=== PATIENT | female | born 1995 | race African-American/Black ===

== ENCOUNTER 2020-02-26 20:36 | Emergency (ER) | payer MEDICARE ==
[~2020-02-26] VITALS: Ht 162.6 cm; Wt 81.6 kg
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
== END 2020-02-26 21:40 | disposition home or self-care (01) ==
LOC: FSED 20:36
DX: O26.91 Pregnancy related conditions, unspecified, first trimester (principal); S30.1XXA Contusion of abdominal wall, initial encounter; S00.83XA Contusion of other part of head, initial encounter; S39.012A Strain of muscle, fascia and tendon of lower back, initial encounter; Y04.8XXA Assault by other bodily force, initial encounter
CPT/HCPCS: 99282